=== PATIENT | female | born 1930 | race African-American/Black ===

== ENCOUNTER 2017-05-11 14:39 | Emergency (ER) | payer MEDICARE, OTHER ==
[~2017-05-11] VITALS: Ht 162.6 cm; Wt 75.0 kg
[2017-05-11] MEDS ORDERED: SODIUM CHLORIDE 0.9% 1,000 ML IV ONE (15:28)
[2017-05-11] MEDS ORDERED: MORPHINE SULFATE 4 MG/ML CPJ (NOT FOR IM USE) IV STA (15:35)
[2017-05-11] MEDS ORDERED: ONDANSETRON HCL 4MG/2ML VIAL IV STA (15:35)
[2017-05-11 16:03] LABS: BASOPHILS % 0.4 % (0.0-2.0); HEMATOCRIT. 37.7 % (36.0-48.0); HEMOGLOBIN. 12.5 g/dL (12.0-16.0); LYMPHOCYTES % 17.7 % (20.0-50.0); MEAN CORPUSCULAR HEMOGLOBIN 26.7 pg (28.0-32.0); MEAN CORPUSCULAR VOLUME 80.6 fL (81.0-99.0); MEAN PLATELET VOLUME 8.4 fl (7.4-10.4); MONOCYTES % 11.6 % (2.0-8.0); NEUTROPHILS % 70.3 % (40.0-76.0); PLATELET 281 x1000/uL (130-400); RED BLOOD CELL COUNT 4.68 mill/uL (4.2-5.4); RED CELL DISTRIBUTION WIDTH 14.7 % (11.6-14.6)
[2017-05-11 16:10] LABS: CARBON DIOXIDE 30 mEq/L (21-32); CHLORIDE 104 mEq/L (98-107); TROPONIN I < 0.02 ng/mL (0.00-0.04)
[2017-05-11 16:13] LABS: INR 1.1; PROTHROMBIN TIME 10.9 sec
[2017-05-11 16:16] LABS: PARTIAL THROMBOPLASTIN TIME < 20.0 sec (24.0-34.0)
[2017-05-11 19:55] VITALS: BP 148/79
== END 2017-05-11 20:04 | disposition home or self-care (01) ==
LOC: ER 14:40 → EDBD 14:40 → ER 20:04
DX: M79.89 Other specified soft tissue disorders (principal); M79.622 Pain in left upper arm; I10 Essential (primary) hypertension; E78.00 Pure hypercholesterolemia, unspecified; Z85.3 Personal history of malignant neoplasm of breast; Z88.0 Allergy status to penicillin; Z92.21 Personal history of antineoplastic chemotherapy; Z92.3 Personal history of irradiation; Z90.12 Acquired absence of left breast and nipple
CPT/HCPCS: 36415; 71010; 80048; 84484; 85025; 85610; 85730; 93005; 93971; 96361; 96374; 96375; 99285; J2270; J2405; J7030